=== PATIENT | female | born 1950 | race African-American/Black ===

== ENCOUNTER 2020-04-22 15:30 | Emergency (ER) | payer BC ==
[~2020-04-22] VITALS: Ht 152.4 cm; Wt 82.0 kg
[2020-04-22] MEDS ORDERED: ACETAMINOPHEN 325MG TABLET PO ONE (16:30)
[2020-04-22] MEDS ORDERED: ACETAMINOPHEN 500MG TABLET PO NR (16:45)
[2020-04-22 17:31] VITALS: BP 151/87
== END 2020-04-22 18:16 | disposition home or self-care (01) ==
LOC: ER 15:30
DX: M25.562 Pain in left knee (principal); I51.9 Heart disease, unspecified; Z96.652 Presence of left artificial knee joint; Z88.0 Allergy status to penicillin
CPT/HCPCS: 73560; 93005; 99283

== ENCOUNTER 2020-05-25 14:40 | Emergency (ER) | payer BC ==
[~2020-05-25] VITALS: Ht 152.4 cm; Wt 72.0 kg
[2020-05-25 17:37] LABS: CHLORIDE 102 mEq/L (98-107)
[2020-05-25 17:40] LABS: INR 1.1; PROTHROMBIN TIME 11.1 sec (9.6-11.0)
[2020-05-25 17:50] LABS: BASOPHILS % 0.4 % (0.0-2.0); HEMATOCRIT. 41.3 % (36.0-48.0); HEMOGLOBIN. 13.5 g/dL (12.0-16.0); LYMPHOCYTES % 16.7 % (20.0-50.0); MEAN CORPUSCULAR HEMOGLOBIN 26.3 pg (28.0-32.0); MEAN CORPUSCULAR VOLUME 80.5 fL (81.0-99.0); MEAN PLATELET VOLUME 10.5 fl (7.4-10.4); MONOCYTES % 3.4 % (2.0-8.0); NEUTROPHILS % 79.5 % (40.0-76.0); PLATELET 348 x1000/uL (130-400); RED BLOOD CELL COUNT 5.14 mill/uL (4.2-5.4); RED CELL DISTRIBUTION WIDTH 16.6 % (11.6-14.6)
[2020-05-25 18:01] LABS: CLARITY URINE CLEAR (CLEAR); COLOR URINE YELLOW (YELLOW); KETONES URINE NEGATIVE (NEGATIVE); LEUKOCYTE ESTERASE URINE NEGATIVE (NEGATIVE); NITRITE URINE NEGATIVE (NEGATIVE); OCCULT BLOOD URINE NEGATIVE (NEGATIVE); PH URINE 6.5 (4.5-8.0); PROTEIN URINE 2+ (NEGATIVE)
[2020-05-25] MEDS ORDERED: ONDANSETRON HCL 4MG/2ML INJ IV STA (18:17)
[2020-05-25] MEDS ORDERED: MORPHINE SULFATE 4 MG/ML CPJ (NOT FOR IM USE) IV STA (18:17)
[2020-05-25] MEDS ORDERED: KETOROLAC 30MG/ML VIAL IV ONE (19:45)
[2020-05-25 21:13] VITALS: BP 154/72
== END 2020-05-25 21:16 | disposition home or self-care (01) ==
LOC: ER 14:40
DX: R11.0 Nausea (principal); R19.7 Diarrhea, unspecified; I10 Essential (primary) hypertension; Z88.0 Allergy status to penicillin; Z96.659 Presence of unspecified artificial knee joint
CPT/HCPCS: 36415; 74176; 80053; 81003; 83690; 85025; 85610; 93005; 96374; 96375; 99285; J1885; J2270; J2405

== ENCOUNTER 2021-04-28 10:55 | Inpatient (IN) | payer BC ==
[~2021-04-28] VITALS: Ht 152.4 cm; Wt 73.9 kg
[~2021-04-28 10:55] MED LIST: HYDR-4350 MT
[2021-04-28] MEDS ORDERED: ONDANSETRON HCL 4MG/2ML INJ IV STA ×2 (12:06→13:28)
[2021-04-28] MEDS ORDERED: MORPHINE SULFATE 4 MG/ML CPJ (NOT FOR IM USE) IV STA ×2 (12:06→13:28)
[2021-04-28 12:08] LABS: HEMATOCRIT. 34.9 % (36.0-48.0); HEMOGLOBIN. 12.1 g/dL (12.0-16.0); MEAN CORPUSCULAR HEMOGLOBIN 27.3 pg (28.0-32.0); MEAN CORPUSCULAR VOLUME 78.8 fL (81.0-99.0); MEAN PLATELET VOLUME 9.3 fl (7.4-10.4); PLATELET 188 x1000/uL (130-400); RED BLOOD CELL COUNT 4.44 mill/uL (4.2-5.4); RED CELL DISTRIBUTION WIDTH 16.4 % (11.6-14.6)
[2021-04-28] MEDS ORDERED: NITROGLYCERIN OINT 1GM/INCH UDPKT TD ONE (12:15)
[2021-04-28 12:16] LABS: CHLORIDE 104 mEq/L (98-107)
[2021-04-28 13:09] LABS: PLATELET ESTIMATE NORMAL
[2021-04-28] MEDS ORDERED: POTASSIUM CHLORIDE 20MEQ TABLET SR PO SCH (13:15)
[2021-04-28] MEDS ORDERED: KCL 10MEQ/50ML PREMIX 50 ML IV SCH (13:15)
[2021-04-28 13:38] LABS: INR 1.1; PROTHROMBIN TIME 11.3 sec (9.6-11.0)
[2021-04-28] MEDS ORDERED: ONDANSETRON HCL 4MG/2ML INJ IV NR (14:30)
[2021-04-28] MEDS ORDERED: ACETAMINOPHEN 325MG TABLET PO PRN (14:30)
[2021-04-28] MEDS ORDERED: ONDANSETRON HCL 4MG/2ML INJ IV PRN (14:30)
[2021-04-28] MEDS ORDERED: DIATR MEGLU/DIATRIZOATE SOLN 30ML ONE ×2 (15:06→17:04)
[2021-04-28] MEDS: NITROGLYCERIN OINT 1GM/INCH UDPKT TD SCH ×2 (15:50→21:52)
[2021-04-28 16:00] VITALS: BP 177/77
[2021-04-28 17:03] VITALS: BP 177/77
[2021-04-28] MEDS ORDERED: BARIUM SULFATE(VOLUMEN) 450 ML ORAL.SUSP ONE (17:04)
[2021-04-28] MEDS ORDERED: POTASSIUM CHLORIDE 8 MEQ TABLET.SA PO SCH (17:45)
[2021-04-28] MEDS ORDERED: PANTOPRAZOLE 40MG DR TABLET PO NR (17:45)
[2021-04-28] MEDS ORDERED: IPRATROPIUM/ALBUTEROL 0.5-3(2.5)MG/3ML NEB HHN PRN (17:45)
[2021-04-28] MEDS ORDERED: CLONIDINE 0.1MG TABLET PO PRN (17:45)
[2021-04-28 18:00] VITALS: BP 171/77
[2021-04-28] MEDS ORDERED: NALOXONE HCL 0.4MG/ML VIAL IV PRN (18:15)
[2021-04-28] MEDS: HYDROCODONE/ACETAMINOPHEN 10/325MG TABLET PO PRN (18:21)
[2021-04-28] MEDS: POTASSIUM CHLORIDE 20MEQ TABLET SR PO SCH (18:36)
[2021-04-28] MEDS: ENOXAPARIN 40MG/0.4ML SYR SUBCUT SCH (18:36)
[2021-04-28 20:00] VITALS: BP 178/84
[2021-04-28 20:55] LABS: CLARITY URINE CLEAR (CLEAR); COLOR URINE YELLOW (YELLOW); KETONES URINE 1+ (NEGATIVE); LEUKOCYTE ESTERASE URINE NEGATIVE (NEGATIVE); NITRITE URINE NEGATIVE (NEGATIVE); OCCULT BLOOD URINE TRACE (NEGATIVE); PH URINE 5.5 (4.5-8.0); PROTEIN URINE 3+ (NEGATIVE); SPECIFIC GRAVITY URINE 1.012 (1.005-1.030); UROBILINOGEN URINE 0.2 E.U./dL (0.2-1.0)
[2021-04-28] MEDS ORDERED: AMLODIPINE 5MG TABLET PO SCH (21:00)
[2021-04-28] MEDS ORDERED: ZOLPIDEM TARTRATE 5MG TABLET PO PRN (21:00)
[2021-04-28] MEDS: ATORVASTATIN CALCIUM 10MG TABLET PO SCH (21:02)
[2021-04-28 21:31] LABS: *BARBITURATES SCREEN URINE NEGATIVE (NEGATIVE)
[2021-04-28 21:32] LABS: *AMPHETAMINES SCREEN URINE NEGATIVE (NEGATIVE); *BENZODIAZEPINES SCREEN URINE NEGATIVE (NEGATIVE); *COCAINE SCREEN URINE NEGATIVE (NEGATIVE); CANNABINOID URINE SCREEN NEGATIVE (NEGATIVE); METHADONE URINE SCREEN NEGATIVE (NEGATIVE); OPIATES URINE SCREEN PRESUMTIVE POSITIVE (NEGATIVE); PHENCYCLIDINE URINE SCREEN NEGATIVE (NEGATIVE)
[2021-04-28] MEDS: HYDRALAZINE HCL 25MG TABLET PO SCH (21:52)
[2021-04-28] MEDS: AMLODIPINE 5MG TABLET PO SCH (22:00)
[2021-04-28] MEDS: ACETAMINOPHEN 325MG TABLET PO PRN (23:33)
[2021-04-29] VITALS (7 sets, daily range): BP systolic 110–168; BP diastolic 57–89
[2021-04-29] MEDS: HYDROCODONE/ACETAMINOPHEN 10/325MG TABLET PO PRN ×3 (00:27→16:26)
[2021-04-29] MEDS: PANTOPRAZOLE 40MG DR TABLET PO SCH (06:13)
[2021-04-29] MEDS: HYDRALAZINE HCL 25MG TABLET PO SCH ×3 (06:14→22:43)
[2021-04-29] MEDS: NITROGLYCERIN OINT 1GM/INCH UDPKT TD SCH ×3 (06:14→22:43)
[2021-04-29 07:21] LABS: CHLORIDE 104 mEq/L (98-107)
[2021-04-29 07:26] LABS: BASOPHILS % 0.3 % (0.0-2.0); HEMATOCRIT. 40.6 % (36.0-48.0); HEMOGLOBIN. 13.5 g/dL (12.0-16.0); LYMPHOCYTES % 14.5 % (20.0-50.0); MEAN CORPUSCULAR HEMOGLOBIN 26.4 pg (28.0-32.0); MEAN CORPUSCULAR VOLUME 79.4 fL (81.0-99.0); MEAN PLATELET VOLUME 10.2 fl (7.4-10.4); MONOCYTES % 9.8 % (2.0-8.0); NEUTROPHILS % 75.4 % (40.0-76.0); PLATELET 216 x1000/uL (130-400); RED BLOOD CELL COUNT 5.11 mill/uL (4.2-5.4)
[2021-04-29 07:29] LABS: LDL CHOLESTEROL 63 mg/dL (5-100)
[2021-04-29 07:31] LABS: HDL CHOLESTEROL 110 mg/dL (40-59)
[2021-04-29 07:33] LABS: CREATINE KINASE MB FRACTION 2.5 ng/mL (0.5-3.6)
[2021-04-29] MEDS ORDERED: ASPIRIN 81MG EC TABLET PO NR (08:00)
[2021-04-29] MEDS ORDERED: DOCUSATE SODIUM 100MG CAPSULE PO SCH (09:00)
[2021-04-29] MEDS: AMLODIPINE 5MG TABLET PO SCH ×2 (09:22→20:53)
[2021-04-29] MEDS: POTASSIUM CHLORIDE 20MEQ TABLET SR PO SCH (09:22)
[2021-04-29] MEDS: ONDANSETRON HCL 4MG/2ML INJ IV PRN ×2 (09:23→13:44)
[2021-04-29] MEDS ORDERED: POTASSIUM CHLORIDE INJ 40 MEQ in DEXT 5% WATER 500 ML IV SCH (10:00)
[2021-04-29] MEDS ORDERED: DOCUSATE SODIUM 100MG CAPSULE PO PRN (10:45)
[2021-04-29] MEDS: ENOXAPARIN 40MG/0.4ML SYR SUBCUT SCH (19:41)
[2021-04-29] MEDS: ATORVASTATIN CALCIUM 10MG TABLET PO SCH (20:44)
[2021-04-29] MEDS: ACETAMINOPHEN 325MG TABLET PO PRN (20:44)
[2021-04-29] MEDS: METOPROLOL TARTRATE 25MG TABLET PO SCH (21:09)
[2021-04-30] VITALS: BP 126/68
[2021-04-30] MEDS ORDERED: POTASSIUM CHLORIDE 20MEQ TABLET SR PO NR (01:30)
[2021-04-30 03:41] VITALS: BP 152/71
[2021-04-30] MEDS: NITROGLYCERIN OINT 1GM/INCH UDPKT TD SCH ×3 (05:04→23:13)
[2021-04-30] MEDS: HYDRALAZINE HCL 25MG TABLET PO SCH ×3 (05:05→23:12)
[2021-04-30] MEDS: PANTOPRAZOLE 40MG DR TABLET PO SCH (06:04)
[2021-04-30 06:54] LABS: BASOPHILS % 0.8 % (0.0-2.0); EOSINOPHILS % 0.1 % (0.0-5.0); HEMATOCRIT. 42.9 % (36.0-48.0); HEMOGLOBIN. 14.1 g/dL (12.0-16.0); MEAN CORPUSCULAR HEMOGLOBIN 26.3 pg (28.0-32.0); MEAN CORPUSCULAR VOLUME 80.1 fL (81.0-99.0); MEAN PLATELET VOLUME 10.4 fl (7.4-10.4); MONOCYTES % 8.1 % (2.0-8.0); PLATELET 194 x1000/uL (130-400); RED BLOOD CELL COUNT 5.36 mill/uL (4.2-5.4); RED CELL DISTRIBUTION WIDTH 17.1 % (11.6-14.6)
[2021-04-30] MEDS: SODIUM CHLORIDE 0.45% 1,000 ML IV SCH ×2 (08:31→22:18)
[2021-04-30] MEDS: DOCUSATE SODIUM 100MG CAPSULE PO SCH (08:32)
[2021-04-30] MEDS: CLOPIDOGREL 75MG TABLET PO SCH (08:32)
[2021-04-30] MEDS: AMLODIPINE 5MG TABLET PO SCH ×2 (08:32→21:52)
[2021-04-30] MEDS: METOPROLOL TARTRATE 25MG TABLET PO SCH ×2 (08:32→21:52)
[2021-04-30] MEDS: POTASSIUM CHLORIDE 20MEQ TABLET SR PO SCH (08:32)
[2021-04-30] MEDS: HYDROCODONE/ACETAMINOPHEN 10/325MG TABLET PO PRN (08:33)
[2021-04-30 12:00] VITALS: BP 102/60
[2021-04-30 16:00] VITALS: BP 116/66
[2021-04-30] MEDS ORDERED: HEPARIN 1000 UNITS/ML 10ML ONE (16:02)
[2021-04-30] MEDS ORDERED: IODIXANOL 320MG/ML 200ML BOTTLE ONE ×2 (16:46→17:31)
[2021-04-30] MEDS ORDERED: LIDOCAINE HCL 1% 20ML VIAL (Pyxis) INJ ONE ×2 (16:48→16:57)
[2021-04-30] MEDS ORDERED: FENTANYL CITRATE/PF 50MCG/ML 2ML VIAL ONE (16:55)
[2021-04-30] MEDS ORDERED: MIDAZOLAM HCL 2 MG/2 ML VIAL ONE (16:56)
[2021-04-30] MEDS ORDERED: IOHEXOL-300 100 ML BOTTLE ONE ×2 (17:15→17:31)
[2021-04-30] MEDS ORDERED: ASPIRIN 325MG EC TABLET PO ONE (17:40)
[2021-04-30] MEDS ORDERED: CLOPIDOGREL 75MG TABLET ONE (17:40)
[2021-04-30] MEDS ORDERED: ACETAMINOPHEN 325MG TABLET PO PRN ×2 (17:45)
[2021-04-30] MEDS ORDERED: ATROPINE SULFATE 1MG/10ML SYR IV PRN ×2 (17:45)
[2021-04-30] MEDS: ENOXAPARIN 40MG/0.4ML SYR SUBCUT SCH (18:00)
[2021-04-30 20:00] VITALS: BP 143/73
[2021-04-30] MEDS: ATORVASTATIN CALCIUM 10MG TABLET PO SCH (21:51)
[2021-04-30 22:00] VITALS: BP 141/70
[2021-05-01] VITALS (12 sets, daily range): BP systolic 114–144; BP diastolic 50–72
[2021-05-01] MEDS: HYDROCODONE/ACETAMINOPHEN 10/325MG TABLET PO PRN ×4 (01:53→22:56)
[2021-05-01] MEDS: NITROGLYCERIN OINT 1GM/INCH UDPKT TD SCH ×3 (06:07→22:55)
[2021-05-01] MEDS: HYDRALAZINE HCL 25MG TABLET PO SCH ×3 (06:07→22:55)
[2021-05-01] MEDS: PANTOPRAZOLE 40MG DR TABLET PO SCH (06:08)
[2021-05-01 07:26] LABS: BASOPHILS % 1.3 % (0.0-2.0); EOSINOPHILS % 0.4 % (0.0-5.0); HEMATOCRIT. 39.5 % (36.0-48.0); HEMOGLOBIN. 12.9 g/dL (12.0-16.0); LYMPHOCYTES % 45.5 % (20.0-50.0); MEAN CORPUSCULAR HEMOGLOBIN 26.3 pg (28.0-32.0); MEAN CORPUSCULAR VOLUME 80.2 fL (81.0-99.0); MEAN PLATELET VOLUME 9.9 fl (7.4-10.4); NEUTROPHILS % 43.8 % (40.0-76.0); PLATELET 180 x1000/uL (130-400); RED BLOOD CELL COUNT 4.92 mill/uL (4.2-5.4)
[2021-05-01] MEDS: DOCUSATE SODIUM 100MG CAPSULE PO SCH (09:14)
[2021-05-01] MEDS: METOPROLOL TARTRATE 25MG TABLET PO SCH ×2 (09:16→21:01)
[2021-05-01] MEDS: CLOPIDOGREL 75MG TABLET PO SCH (09:16)
[2021-05-01] MEDS: AMLODIPINE 5MG TABLET PO SCH ×2 (09:16→21:01)
[2021-05-01] MEDS: ENOXAPARIN 40MG/0.4ML SYR SUBCUT SCH (18:03)
[2021-05-01] MEDS: ATORVASTATIN CALCIUM 10MG TABLET PO SCH (21:00)
[2021-05-02] VITALS (8 sets, daily range): BP systolic 119–140; BP diastolic 56–66
[2021-05-02] MEDS: PANTOPRAZOLE 40MG DR TABLET PO SCH (06:45)
[2021-05-02] MEDS: NITROGLYCERIN OINT 1GM/INCH UDPKT TD SCH (06:45)
[2021-05-02] MEDS: HYDRALAZINE HCL 25MG TABLET PO SCH (06:46)
[2021-05-02 06:50] LABS: BASOPHILS % 0.9 % (0.0-2.0); EOSINOPHILS % 1.7 % (0.0-5.0); HEMOGLOBIN. 13.3 g/dL (12.0-16.0); LYMPHOCYTES % 58.2 % (20.0-50.0); MEAN CORPUSCULAR HEMOGLOBIN 26.4 pg (28.0-32.0); MEAN CORPUSCULAR VOLUME 81.7 fL (81.0-99.0); MEAN PLATELET VOLUME 9.7 fl (7.4-10.4); MONOCYTES % 7.6 % (2.0-8.0); NEUTROPHILS % 31.6 % (40.0-76.0); PLATELET 174 x1000/uL (130-400); RED BLOOD CELL COUNT 5.02 mill/uL (4.2-5.4); RED CELL DISTRIBUTION WIDTH 17.3 % (11.6-14.6)
[2021-05-02] MEDS: METOPROLOL TARTRATE 25MG TABLET PO SCH (09:06)
[2021-05-02] MEDS: AMLODIPINE 5MG TABLET PO SCH (09:06)
[2021-05-02] MEDS: CLOPIDOGREL 75MG TABLET PO SCH (09:06)
[2021-05-02] MEDS: HYDROCODONE/ACETAMINOPHEN 10/325MG TABLET PO PRN (10:40)
== END 2021-05-02 13:45 | disposition home or self-care (01) | DRG 247 ==
LOC: ER 10:55 → 8WST 13:37 → EDBEDREQ 13:42 → EDBEDREQTM 13:42 → ENRESERV 16:03 → 3WST 04-30 18:33
PROVIDERS: ADMIT Internal Medicine Geriatric Medicine; ATTEND Internal Medicine Geriatric Medicine
PROC: 027034Z Dilation of Coronary Artery, One Artery with Drug-eluting Intraluminal Device, Percutaneous Approach (ICD-10-PCS; principal; 2021-04-30)
PROC: 4A023N7 Measurement of Cardiac Sampling and Pressure, Left Heart, Percutaneous Approach (ICD-10-PCS; 2021-04-30)
PROC: B2111ZZ Fluoroscopy of Multiple Coronary Arteries using Low Osmolar Contrast (ICD-10-PCS; 2021-04-30)
DX: I21.4 Non-ST elevation (NSTEMI) myocardial infarction (principal); E78.5 Hyperlipidemia, unspecified; E87.6 Hypokalemia; F41.9 Anxiety disorder, unspecified; G89.4 Chronic pain syndrome; I11.9 Hypertensive heart disease without heart failure; I16.0 Hypertensive urgency; I25.10 Atherosclerotic heart disease of native coronary artery without angina pectoris; I49.1 Atrial premature depolarization; K29.70 Gastritis, unspecified, without bleeding; K59.09 Other constipation; M48.02 Spinal stenosis, cervical region; M48.061 Spinal stenosis, lumbar region without neurogenic claudication; R25.1 Tremor, unspecified; I35.8 Other nonrheumatic aortic valve disorders; R29.6 Repeated falls; Z20.822 Contact with and (suspected) exposure to COVID-19; Y84.0 Cardiac catheterization as the cause of abnormal reaction of the patient, or of later complication, without mention of misadventure at the time of the procedure; M47.26 Other spondylosis with radiculopathy, lumbar region; Z86.73 Personal history of transient ischemic attack (TIA), and cerebral infarction without residual deficits; Z88.0 Allergy status to penicillin; Z95.5 Presence of coronary angioplasty implant and graft; Z90.710 Acquired absence of both cervix and uterus; Z79.899 Other long term (current) drug therapy; Y92.89 Other specified places as the place of occurrence of the external cause
CPT/HCPCS: 36415; 71045; 74176; 80048; 80053; 80061; 80305; 81003; 82553; 83036; 83735; 83880; 84443; 84484; 85025; 85347; 87426; 92928; 93005; 93306; 93458; 97110; 97116; 97162; 99285; C1769; C1874; C1887; C1893; J1644; J1650; J2250; J2270; J2405; J3010; J3480; J3490; J7060; Q9963; Q9967; U0003; U0005